=== PATIENT | female | born 1965 | race Caucasian/White ===

== ENCOUNTER → 2020-09-20 | Outpatient (CLI) | payer BC | LOC: KOH-I 14:57 | DX: M21.612 Bunion of left foot (principal); M21.072 Valgus deformity, not elsewhere classified, left ankle; M77.32 Calcaneal spur, left foot | CPT/HCPCS: 73630 ==

== ENCOUNTER → 2020-10-31 | Outpatient (CLI) | payer BC ==
[2020-10-31 11:35] LABS: HEMOGLOBIN 12.9 gm/dl (12.3-15.3); RED BLOOD COUNT 4.08 M/UL (4.00-5.10); WHITE BLOOD COUNT 3.8 K/UL (4.5-11.0)
[2020-10-31 12:01] LABS: BUN/CREATININE RATIO 18 (0-10)
[2020-11-01 08:14] LABS: VITAMIN D, 25-HYDROXY 52.5 ng/mL (30.0-100.0)
[2020-11-02 11:14] LABS: CHOLESTEROL, TOTAL 203 mg/dL (100-199); HDL SIZE 10.1 nm (>=9.2); HDL-C 86 mg/dL (>39); HDL-P (TOTAL) 36.6 umol/L (>=30.5); LARGE HDL-P 13.5 umol/L (>=4.8); LARGE VLDL-P 1.3 nmol/L (<=2.7); LDL SIZE 21.7 nm (>20.5); LDL SIZE 21.7 nm (>=20.8); LDL-C 106 mg/dL (0-99); LDL-P 837 nmol/L (<1000); LP-IR SCORE <25 (<=45); SMALL LDL-P <90 nmol/L (<=527); TRIGLYCERIDES 62 mg/dL (0-149); VLDL SIZE 45.5 nm (<=46.6)
== END ==
LOC: LAB 09:05
PROVIDERS: Family Medicine
DX: R23.8 Other skin changes (principal); R79.82 Elevated C-reactive protein (CRP); N95.1 Menopausal and female climacteric states; N95.2 Postmenopausal atrophic vaginitis; L60.3 Nail dystrophy
CPT/HCPCS: 36415; 80053; 80061; 82180; 82525; 82607; 82746; 82747; 83704; 84207; 84439; 84443; 84481; 84630; 85027; 86140

== ENCOUNTER → 2020-11-01 | Outpatient (CLI) | payer BC ==
[2020-11-02 17:11] LABS: HEMATOCRIT 39.7 % (34.0-46.6)
== END ==
LOC: LAB 10:42
PROVIDERS: Family Medicine
DX: R23.8 Other skin changes (principal); R79.82 Elevated C-reactive protein (CRP); N95.1 Menopausal and female climacteric states; N95.2 Postmenopausal atrophic vaginitis; L60.3 Nail dystrophy
CPT/HCPCS: 82747

== ENCOUNTER → 2021-02-14 | Outpatient (CLI) | payer BC ==
[2021-02-14 10:29] LABS: HEMOGLOBIN 13.2 gm/dl (12.3-15.3); RED BLOOD COUNT 4.06 M/UL (4.00-5.10); WHITE BLOOD COUNT 3.5 K/UL (4.5-11.0)
[2021-02-14 10:56] LABS: BUN/CREATININE RATIO 18 (0-10)
== END ==
LOC: LAB 08:35
PROVIDERS: Nurse Practitioner Family
DX: Z13.220 Encounter for screening for lipoid disorders (principal); E03.9 Hypothyroidism, unspecified; E53.8 Deficiency of other specified B group vitamins; E55.9 Vitamin D deficiency, unspecified; R23.8 Other skin changes
CPT/HCPCS: 36415; 80053; 80061; 82607; 84439; 84443; 84481; 85025

== ENCOUNTER → 2021-02-27 | Outpatient (CLI) | payer BC | LOC: MAMO 09:00 | DX: Z12.31 Encounter for screening mammogram for malignant neoplasm of breast (principal) | CPT/HCPCS: 77063; 77067 ==

== ENCOUNTER → 2021-06-11 | Outpatient (CLI) | payer BC | LOC: LAB 08:42 | DX: E03.8 Other specified hypothyroidism (principal) | CPT/HCPCS: 36415; 84439; 84443; 84481 ==

== ENCOUNTER → 2021-07-09 | Outpatient (CLI) | payer BC ==
[2021-07-10 15:14] LABS: THYROGLOBULIN ANTIBODY <1.0 IU/mL (0.0-0.9); THYROID PEROXIDASE (TPO) AB <8 IU/mL (0-34)
== END ==
LOC: LAB 09:40
PROVIDERS: Family Medicine
DX: E03.8 Other specified hypothyroidism (principal)
CPT/HCPCS: 36415; 84255; 86376; 86800

== ENCOUNTER → 2021-10-10 | Outpatient (CLI) | payer BC | LOC: LAB 08:47 | DX: E03.8 Other specified hypothyroidism (principal) | CPT/HCPCS: 36415; 84439; 84443; 84481 ==

== ENCOUNTER → 2021-10-23 | Outpatient (CLI) | payer BC | LOC: LAB 09:20 | DX: L65.9 Nonscarring hair loss, unspecified (principal); Z20.822 Contact with and (suspected) exposure to COVID-19 | CPT/HCPCS: 36415 ==

== ENCOUNTER → 2021-12-20 | Outpatient (CLI) | payer BC ==
[2021-12-21 08:16] LABS: VITAMIN D, 25-HYDROXY 64.2 ng/mL (30.0-100.0)
== END ==
LOC: LAB 12:09
PROVIDERS: Family Medicine
DX: E55.9 Vitamin D deficiency, unspecified (principal); E61.8 Deficiency of other specified nutrient elements; E53.9 Vitamin B deficiency, unspecified; E03.8 Other specified hypothyroidism; R79.82 Elevated C-reactive protein (CRP)
CPT/HCPCS: 36415; 82607; 84439; 84443; 84481; 86140

== ENCOUNTER → 2022-04-14 | Outpatient (CLI) | payer BC ==
[2022-04-14 08:04] LABS: HEMOGLOBIN 13.4 gm/dl (12.3-15.3); RED BLOOD COUNT 4.11 M/UL (4.00-5.10); WHITE BLOOD COUNT 4.3 K/UL (4.5-11.0)
[2022-04-14 08:31] LABS: BUN/CREATININE RATIO 25 (0-10)
[2022-04-15 09:13] LABS: INSULIN 2.1 uIU/mL (2.6-24.9)
== END ==
LOC: LAB 07:24
PROVIDERS: Family Medicine
DX: E03.9 Hypothyroidism, unspecified (principal); E61.8 Deficiency of other specified nutrient elements; R23.8 Other skin changes
CPT/HCPCS: 36415; 80053; 83003; 84439; 84443; 84481; 85027

== ENCOUNTER → 2022-04-30 | Outpatient (CLI) | payer BC | LOC: LAB 10:38 | DX: B34.9 Viral infection, unspecified (principal); Z20.822 Contact with and (suspected) exposure to COVID-19 | CPT/HCPCS: U0002 ==